=== PATIENT | female | born 1935 | race Hispanic/Latino ===

== ENCOUNTER 2017-08-02 09:02 | Emergency (ER) | payer OTHER, MEDICARE ==
[2017-08-02] MEDS ORDERED: TRAMADOL HCL 50 MG TABLET ONE (10:10)
== END 2017-08-02 10:25 | disposition home or self-care (01) ==
LOC: EDH 09:02
DX: S52.591A Other fractures of lower end of right radius, initial encounter for closed fracture (principal); S52.614A Nondisplaced fracture of right ulna styloid process, initial encounter for closed fracture; E11.9 Type 2 diabetes mellitus without complications; E78.5 Hyperlipidemia, unspecified; I10 Essential (primary) hypertension; Z98.890 Other specified postprocedural states; W18.39XA Other fall on same level, initial encounter; Y93.89 Activity, other specified; Y92.098 Other place in other non-institutional residence as the place of occurrence of the external cause; Y99.8 Other external cause status
CPT/HCPCS: 29125; 73110

== ENCOUNTER → 2017-08-15 | Outpatient (CLI) | payer OTHER, MEDICARE | END | disposition home or self-care (01) | LOC: OIH 11:18 | PROVIDERS: ATTEND Family Medicine | DX: S52.501A Unspecified fracture of the lower end of right radius, initial encounter for closed fracture (principal); S52.201A Unspecified fracture of shaft of right ulna, initial encounter for closed fracture; M80.031D Age-related osteoporosis with current pathological fracture, right forearm, subsequent encounter for fracture with routine healing; X58.XXXA Exposure to other specified factors, initial encounter; Y93.89 Activity, other specified; Y92.89 Other specified places as the place of occurrence of the external cause; Y99.8 Other external cause status | CPT/HCPCS: 73110 ==

== ENCOUNTER → 2017-09-15 | Outpatient (CLI) | payer OTHER, MEDICARE | END | disposition home or self-care (01) | LOC: OIH 12:44 | PROVIDERS: ATTEND Family Medicine | DX: S52.501D Unspecified fracture of the lower end of right radius, subsequent encounter for closed fracture with routine healing (principal); M80.031D Age-related osteoporosis with current pathological fracture, right forearm, subsequent encounter for fracture with routine healing; X58.XXXD Exposure to other specified factors, subsequent encounter | CPT/HCPCS: 73100 ==

== ENCOUNTER 2023-11-17 11:09 | Emergency (ER) | payer OTHER, MEDICARE ==
[~2023-11-17] VITALS: Ht 154.9 cm; Wt 45.4 kg
[2023-11-17 11:12] VITALS: BP 201/74; PULSE 53; RESP 16; TEMP 97.8
[2023-11-17 11:37] LABS: BASOPHILS # (AUTO) 0.03 K/uL (0.00-0.20); BASOPHILS % (AUTO) 0.5 % (0.0-5.0); EOSINOPHILS # (AUTO) 0.25 K/uL (0.00-0.70); EOSINOPHILS % (AUTO) 4.4 % (0.0-8.0); HEMATOCRIT 33.3 % (36-48); IMMATURE GRANULOCYTE ABSOLUTE 0.01 K/uL (0-1); LYMPHOCYTES # (AUTO) 1.9 K/uL (1.0-4.8); LYMPHOCYTES % (AUTO) 33.8 % (21.0-51.0); MEAN CORPUSCULAR HEMOGLOBIN 29.7 pg (27.0-33.0); MEAN CORPUSCULAR HGB CONC 34.5 g/dL (32.0-36.0); MONOCYTES # (AUTO) 0.5 K/uL (0.1-1.0); MONOCYTES % (AUTO) 8.3 % (3.0-13.0); NEUTROPHILS % (AUTO) 52.8 % (40.0-77.0); PLATELET COUNT (AUTO) 204 K/uL (130-400); RED BLOOD CELL COUNT(AUTO) 3.87 MIL/uL (4.00-5.50); RED CELL DISTRIBUTION WIDTH 14.1 % (11.0-15.5); WHITE BLOOD COUNT (AUTO) 5.7 K/uL (4.8-10.8)
[2023-11-17 11:52] LABS: CREATININE 0.4 mg/dL (0.5-1.0); POTASSIUM 4.2 mmol/L (3.5-5.1)
[2023-11-17] MEDS: acetaMINOPHEN 500 MG TABLET PO ONE (11:54)
[2023-11-17 11:56] LABS: ALBUMIN 3.7 g/dL (3.5-5.0); BILIRUBIN,TOTAL 0.6 mg/dL (0.2-1.0); TOTAL PROTEIN, SERUM 6.8 g/dL (6.0-8.3)
[2023-11-17] MEDS ORDERED: METO100T14 PO (12:19)
== END 2023-11-17 13:54 | disposition home or self-care (01) ==
LOC: EDH 11:09
DX: S32.058A Other fracture of fifth lumbar vertebra, initial encounter for closed fracture (principal); S00.03XA Contusion of scalp, initial encounter; S30.0XXA Contusion of lower back and pelvis, initial encounter; E86.0 Dehydration; E87.1 Hypo-osmolality and hyponatremia; E78.00 Pure hypercholesterolemia, unspecified; E11.9 Type 2 diabetes mellitus without complications; I10 Essential (primary) hypertension; M43.16 Spondylolisthesis, lumbar region; Z79.899 Other long term (current) drug therapy; Z98.890 Other specified postprocedural states; W18.39XA Other fall on same level, initial encounter; Y93.01 Activity, walking, marching and hiking; Y92.89 Other specified places as the place of occurrence of the external cause; Y99.8 Other external cause status
CPT/HCPCS: 36415; 70450; 72100; 80053; 84484; 85025; 93005